=== PATIENT | female | born 1965 | race Caucasian/White ===

== ENCOUNTER 2017-01-25 14:56 | Emergency (ER) | payer OTHER ==
[~2017-01-25 14:56] MED LIST: ALDACTONE25 MG PO; ALDACTONE50 MG PO; BACTRIM D.S. TAB1 EA PO; HABITROL 21 MG P1 EA TD; KLOR-CON M2020 MEQ PO; LANOXIN TAB0.125 MG PO; LANTUS100 UNIT/1 SC; LANTUS100 UNIT/1 SQ; LOPRESSOR 25 MG25 MG PO; MEXITIL PO; NOVOLIN R100 UNIT/1 SQ; PROTONIX40 MG PO; PROZAC20 MG PO; PYRIDIUM100 MG PO; TOPAMAX50 MG PO; XANAX1 MG PO
[2017-01-25 16:23] LABS: HEMOGLOBIN 13.2 gm/dl (12.3-15.3); RED BLOOD COUNT 4.4 M/UL (4.00-5.10); WHITE BLOOD COUNT 14.6 K/UL (4.5-11.0)
[2017-01-25 16:36] LABS: BUN/CREATININE RATIO 20 (0-10)
== END 2017-01-26 00:09 | disposition home or self-care (01) ==
LOC: ER1 14:56
PROVIDERS: Physician Assistant
DX: E11.65 Type 2 diabetes mellitus with hyperglycemia (principal); N39.0 Urinary tract infection, site not specified; B37.0 Candidal stomatitis; R07.9 Chest pain, unspecified; R55 Syncope and collapse; R74.8 Abnormal levels of other serum enzymes; Z88.0 Allergy status to penicillin; Z88.1 Allergy status to other antibiotic agents; Z88.5 Allergy status to narcotic agent; Z88.6 Allergy status to analgesic agent; Z79.4 Long term (current) use of insulin; Z79.899 Other long term (current) drug therapy
CPT/HCPCS: 36415; 70450; 71010; 72125; 80053; 80162; 80307; 81001; 82009; 82550; 82553; 82962; 83874; 84484; 85025; 85379; 87086; 93005; 96374; 96375; 99284; G0480; J1200; J1885; J2270; J2405; J2765; Q0162

== ENCOUNTER → 2017-04-15 | Outpatient (CLI) | payer OTHER | LOC: MAMO 03-03 13:40 | DX: Z12.31 Encounter for screening mammogram for malignant neoplasm of breast (principal); Z13.820 Encounter for screening for osteoporosis; M81.0 Age-related osteoporosis without current pathological fracture; M85.88 Other specified disorders of bone density and structure, other site | CPT/HCPCS: 77080; G0202 ==

== ENCOUNTER 2017-05-10 14:20 | Emergency (ER) | payer OTHER | END 2017-05-10 15:49 | disposition home or self-care (01) | LOC: ER1 14:20 | DX: S63.502A Unspecified sprain of left wrist, initial encounter (principal); E11.9 Type 2 diabetes mellitus without complications; I42.9 Cardiomyopathy, unspecified; W01.0XXA Fall on same level from slipping, tripping and stumbling without subsequent striking against object, initial encounter; Y92.009 Unspecified place in unspecified non-institutional (private) residence as the place of occurrence of the external cause; Z95.810 Presence of automatic (implantable) cardiac defibrillator; Z88.0 Allergy status to penicillin; Z88.1 Allergy status to other antibiotic agents; Z88.5 Allergy status to narcotic agent; Z87.891 Personal history of nicotine dependence | CPT/HCPCS: 29125; 73110; 73130; 99283 ==

== ENCOUNTER → 2021-12-18 | Outpatient (CLI) | payer OTHER ==
[~2021-12-18] MED LIST changes: +ADMELOG100 UNIT/1 SC; +BASAGLAR K100 UNIT/1 SQ; +BENTYL 20MG TAB20 MG PO; +BUTALB-ACETAMI1 EAC1 PO; +BYDUREON2 MG SQ; +CIPRO500 MG PO; +CLEOCIN HCL300 MG PO; +COZAAR25 MG PO; +FOSAMAX70 MG PO; +FUROSEMIDE40 MG PO; +HYDROCODON-ACE1 EAC4 PO; +HYDROXYZINE HCL25 MG PO; +KEFLEX CAP 500500 MG PO; +KLONOPIN0.5 MG PO; +LACTINEX PO; +LIPITOR20 MG PO; +METHENAMINE HIPP1 GM PO; +MEXITIL 150 MG150 MG PO; +MYCOSTATIN100000 UTS PO; +NORFLEX 100 MG100 MG PO; +NOVOLOG FL100 UNIT/1 SQ; +PHENERGAN 12.12.5 M1 PO; +PHENERGAN 25 MG25 M1 PO; +PROVENTIL HFA6.7 GM INH; +TRAMADOL HCL50 MG PO; +TYLENOL325 MG PO; +VENTOLIN HFA 66.7 GM INH; +VENTOLIN/PROVE0.5 ML INH; +Voltaren Gel 1 % TOP; +XIFAXAN550 MG PO; +ZESTRIL2.5 MG PO; +ZOFRAN ODT4 MG PO; +ZOFRAN4 MG PO
== END ==
LOC: HEART 5 15:30
DX: I50.22 Chronic systolic (congestive) heart failure (principal); I42.0 Dilated cardiomyopathy; I08.1 Rheumatic disorders of both mitral and tricuspid valves; Z95.0 Presence of cardiac pacemaker
CPT/HCPCS: 93306

== ENCOUNTER 2022-04-26 03:43 | Inpatient (IN) | payer OTHER ==
[~2022-04-26] VITALS: Ht 177.8 cm; Wt 66.7 kg
[~2022-04-26 03:43] MED LIST changes: -ADMELOG100 UNIT/1 SC; -ALDACTONE50 MG PO; -BASAGLAR K100 UNIT/1 SQ; +HUMULIN R500 UNIT/1 SQ; -LANOXIN TAB0.125 MG PO; +LANTUS SOL100 UNIT/1 SQ; -PROTONIX40 MG PO
[2022-04-26] MEDS ORDERED: PROTONIX20 MG PO (05:05)
[2022-04-26] MEDS ORDERED: ALDACTONE50 MG PO (05:42)
[2022-04-26 05:53] LABS: HEMOGLOBIN 14.8 gm/dl (12.3-15.3); RED BLOOD COUNT 4.77 M/UL (4.00-5.10); WHITE BLOOD COUNT 17.2 K/UL (4.5-11.0)
[2022-04-26 06:19] LABS: BUN/CREATININE RATIO 23 (0-10)
[2022-04-26] MEDS ORDERED: MECLIZINE HCL25 MG PO (09:10)
[2022-04-26] MEDS ORDERED: BENTYL 10MG CAP10 MG PO (09:12)
[2022-04-26] MEDS ORDERED: KLONOPIN0.5 MG PO (11:14)
[2022-04-26] MEDS ORDERED: ONDANSETRON HCL8 MG PO (11:16)
[2022-04-26] MEDS ORDERED: UREX1 GM PO (11:16)
[2022-04-26] MEDS ORDERED: BUTALB-ACETAMI1 EAC2 PO (11:17)
[2022-04-26] MEDS ORDERED: POTASSIUM CHLO20 ME2 PO (11:18)
[2022-04-26] MEDS ORDERED: FUROSEMIDE20 MG PO (11:18)
[2022-04-26] MEDS ORDERED: METOPROLOL TART25 MG PO (11:19)
[2022-04-26] MEDS ORDERED: VITAMIN C500 M4 PO (11:20)
[2022-04-26] MEDS ORDERED: DIGOX250 MCG PO (19:59)
[2022-04-26] MEDS ORDERED: MEXITIL PO (21:15)
[2022-04-27 06:12] LABS: HEMOGLOBIN 12.5 gm/dl (12.3-15.3); RED BLOOD COUNT 4.12 M/UL (4.00-5.10); WHITE BLOOD COUNT 13.6 K/UL (4.5-11.0)
[2022-04-27 06:36] LABS: BUN/CREATININE RATIO 32 (0-10)
--- NOTE | 2022-04-27 15:30 | NUR ---
patient ambulating from bed to bathroom and reports of tolerated clear liquid. reports of passing gas.
[2022-04-28 07:28] LABS: RED BLOOD COUNT 4.38 M/UL (4.00-5.10); WHITE BLOOD COUNT 11.6 K/UL (4.5-11.0)
[2022-04-28 07:55] LABS: BUN/CREATININE RATIO 14 (0-10)
[2022-04-29 06:17] LABS: HEMOGLOBIN 11.5 gm/dl (12.3-15.3); WHITE BLOOD COUNT 9.7 K/UL (4.5-11.0)
[2022-04-29 06:22] LABS: RED BLOOD COUNT 3.71 M/UL (4.00-5.10)
[2022-04-29 06:45] LABS: BUN/CREATININE RATIO 8 (0-10)
== END 2022-04-30 14:57 | disposition home health service (06) | DRG 389 ==
LOC: ER1 03:43 → CDU 06:42 → MED SURG 4 06:42
PROVIDERS: Family Medicine; Internal Medicine; ADMIT Internal Medicine
PROC: 0D9670Z Drainage of Stomach with Drainage Device, Via Natural or Artificial Opening (ICD-10-PCS; principal; 2022-04-26)
DX: K56.609 Unspecified intestinal obstruction, unspecified as to partial versus complete obstruction (principal); N39.0 Urinary tract infection, site not specified; Z16.12 Extended spectrum beta lactamase (ESBL) resistance; I48.20 Chronic atrial fibrillation, unspecified; I50.22 Chronic systolic (congestive) heart failure; F11.20 Opioid dependence, uncomplicated; Z20.822 Contact with and (suspected) exposure to COVID-19; I11.0 Hypertensive heart disease with heart failure; F17.210 Nicotine dependence, cigarettes, uncomplicated; G89.29 Other chronic pain; B96.20 Unspecified Escherichia coli [E. coli] as the cause of diseases classified elsewhere; E11.65 Type 2 diabetes mellitus with hyperglycemia; E87.6 Hypokalemia; I25.5 Ischemic cardiomyopathy; F41.9 Anxiety disorder, unspecified; Z79.01 Long term (current) use of anticoagulants; Z79.4 Long term (current) use of insulin; Z95.810 Presence of automatic (implantable) cardiac defibrillator; Z90.49 Acquired absence of other specified parts of digestive tract; Z83.3 Family history of diabetes mellitus; Z88.0 Allergy status to penicillin; Z88.8 Allergy status to other drugs, medicaments and biological substances
CPT/HCPCS: 36415; 71045; 80048; 80053; 81001; 82550; 82553; 82962; 83690; 83735; 83880; 84100; 84132; 84484; 85025; 85027; 86140; 87040; 87077; 87086; 87186; 93005; 96372; 96374; 96375; 96376; 99285; C9113; J1160; J1335; J1650; J2185; J2270; J2405; J2550

== ENCOUNTER → 2022-05-16 | Day surgery (SDC) | payer OTHER ==
[~2022-05-16] MED LIST changes: +ALDACTONE50 MG PO; +BENTYL 10MG CAP10 MG PO; +BUTALB-ACETAMI1 EAC2 PO; +DIGOX250 MCG PO; +FUROSEMIDE20 MG PO; +MECLIZINE HCL25 MG PO; +METOPROLOL TART25 MG PO; +ONDANSETRON HCL8 MG PO; +PERCOCET 5-3251 EACH PO; +POTASSIUM CHLO20 ME2 PO; +PROTONIX20 MG PO; +UREX1 GM PO; +VITAMIN C500 M4 PO
== END | disposition home or self-care (01) ==
LOC: OR 06:36
DX: K29.60 Other gastritis without bleeding (principal); K22.10 Ulcer of esophagus without bleeding; K21.00 Gastro-esophageal reflux disease with esophagitis, without bleeding; K31.9 Disease of stomach and duodenum, unspecified; I11.0 Hypertensive heart disease with heart failure; I50.22 Chronic systolic (congestive) heart failure; I25.10 Atherosclerotic heart disease of native coronary artery without angina pectoris; E78.5 Hyperlipidemia, unspecified; J44.9 Chronic obstructive pulmonary disease, unspecified; E11.9 Type 2 diabetes mellitus without complications; F17.200 Nicotine dependence, unspecified, uncomplicated; F41.9 Anxiety disorder, unspecified; F32.A Depression, unspecified; Z88.0 Allergy status to penicillin; Z88.5 Allergy status to narcotic agent; Z88.6 Allergy status to analgesic agent; Z88.8 Allergy status to other drugs, medicaments and biological substances; Z79.4 Long term (current) use of insulin; Z79.899 Other long term (current) drug therapy; Z90.49 Acquired absence of other specified parts of digestive tract
CPT/HCPCS: 82962; J2704